=== PATIENT | male | born 1990 | race Caucasian/White ===

== ENCOUNTER 2017-08-24 22:55 | Emergency (ER) | payer SELFPAY ==
[2017-08-24] MEDS ORDERED: AMOXICILLIN 500MG CAPSULE PO ONE (23:25)
[2017-08-24] MEDS ORDERED: PREDNISONE 20 MG TAB PO ONE (23:25)
[2017-08-24] MEDS ORDERED: IPRATROPIUM/ALBUTEROL (0.5MG/3MG) NEB INH ONE (23:25)
--- NOTE | 2017-08-24 23:31 | Emergency Department Record ---
History of Present Illness - General Chief Complaint: Shortness of breath Stated Complaint: CARMELO,COUGH, VOMITING,TOOTHACHE Time Seen by Provider: 08/24/17 23:17 Source: Patient Mode of Arrival: Ambulatory Limitations: No limitations - History of Present Illness Initial Comments: 27 yo male presents with cough for 2 days. He has had clear phlegm production. He has had sore throat and subjective fevers. He has had left sided dental pain and now mild swelling of the left cheek. He has a hoarse voice. He is a smoker and had asthma as a child. No diarrhea. No rash. The phlegm makes him vomit at times. No edema. No chest pain. MD Complaint: Cough Onset/Timin -: Days(s) Severity scale (1-10): 8 Quality: Aching Consistency: Constant Improves With: Nothing Worsens With: Nothing Known History Of: Asthma Associated Symptoms: Cough, Other (dental pain) Treatments Prior to Arrival: Asprin - Related Data Previous Rx's Medication Instructions Recorded Amoxicillin 500Mg Capsule [Amoxil] 500 mg PO TID #30 tab 08/24/17 Prednisone [Prednisone 20Mg] 20 mg PO BID #10 tab 08/24/17 Allergies Allergy/AdvReac Type Severity Reaction Status Date / Time No Known Drug Allergies Allergy Verified 08/24/17 23:01 Travel Screening - Travel/Exposure Within Last 30 Days Have you traveled within the last 30 days?: No - Travel/Exposure Within Last Year Have you traveled outside the [place] in the last year?: No - Additonal Travel Details Have you been exposed to anyone with a communicable illness?: No - Travel Symptoms Symptom Screening: None Review of Systems Constitutional: Reports: Chills, Fever. Denies: Malaise, Weakness Eyes: Denies: Eye discharge, Eye pain, Photophobia, Vision change ENT: Reports: As per HPI, Congestion, Dental pain, Throat pain. Denies: Ear pain Respiratory: Reports: As per HPI, Cough Cardiovascular: Denies: Chest pain, Palpitations, Syncope Endocrine: Denies: Fatigue Gastrointestinal: Denies: Abdominal pain, Diarrhea, Nausea, Vomiting Genitourinary: Denies: Dysuria, Frequency, Hematuria Musculoskeletal: Reports: Myalgia. Denies: Arthralgia, Back pain, Joint swelling Skin: Denies: Bruising, Change in color, Rash Neurological: Reports: Headache. Denies: Abnormal gait, Confusion, Numbness, Seizure, Tingling, Tremors, Vertigo, Weakness Psychiatric: Denies: Anxiety Hematological/Lymphatic: Reports: Swollen glands. Denies: Anemia, Blood Clots, Easy bleeding, Easy bruising Past Medical History - SOCIAL HISTORY Smoking Status: Current every day smoker Alcohol Use: Heavy Drug Use: Occasional Drug Use Detail:: Marijuana - RESPIRATORY Hx Respiratory Disorders: No - CARDIOVASCULAR Hx Cardio Disorders: No - NEURO Hx Neuro Disorders: No - GI Hx GI Disorders: No - Hx Genitourinary Disorders: No - ENDOCRINE Hx Endocrine Disorders: No - MUSCULOSKELETAL Hx Musculoskeletal Disorders: No - PSYCH Hx Psych Problems: No - HEMATOLOGY/ONCOLOGY Hx Hematology/Oncology Disorders: No Family Medical History Any Significant Family History?: No Physical Exam - General General Appearance: Alert, Oriented x3, Cooperative, No acute distress Limitations: No limitations - Head Head exam: Atraumatic, Normocephalic, Normal inspection - Eye Eye exam: Normal appearance, PERRL, EOMI. negative: Conjunctival injection, Periorbital swelling, Scleral icterus - ENT ENT exam: Normal exam, Mucous membranes moist, TM's normal bilaterally. negative: Mucous membranes dry Ear exam: Normal external inspection Nasal Exam: Discharge. negative: Active bleeding, Dried blood, Sinus tenderness Mouth exam: Normal external inspection, Other (Mildly hoarse). negative: Drooling, Laceration, Muffled voice, Tongue elevation, Tongue normal, Trismus Teeth exam: Dental caries, Dental tenderness # (16) Throat exam: Normal inspection. negative: Tonsillar erythema, Tonsillomegaly, Tonsillar exudate, R peritonsillar mass, L peritonsillar mass - Neck Neck exam: Normal inspection, Full ROM, Lymphadenopathy (mild anterior cervical) . negative: Meningismus, Tenderness, Thyromegaly - Respiratory Respiratory exam: Decreased breath sounds, Rhonchi, Wheezes. negative: Normal lung sounds bilaterally, Accessory muscle use, Prolonged expiratory, Rales, Respiratory distress, Stridor - Cardiovascular Cardiovascular Exam: Regular rate, Normal rhythm, Normal heart sounds Peripheral Pulses: 2+: Radial (R), Radial (L) - GI/Abdominal GI/Abdominal exam: Soft. negative: Tenderness - Rectal Rectal exam: Deferred - exam: Deferred - Extremities Extremities exam: Normal inspection. negative: Calf tenderness, Pedal edema, Tenderness - Back Back exam: Reports: Normal inspection, Full ROM. Denies: Muscle spasm, Rash noted, Tenderness - Neurological Neurological exam: Alert, Normal gait, Oriented X3 - Psychiatric Psychiatric exam: Normal affect, Normal mood. negative: Agitated, Anxious - Skin Skin exam: Dry, Intact, Normal color, Warm Course Vital Signs 08/24/17 23:00 Temperature 98.3 F Pulse Rate 66 Respiratory 20 Rate Blood Pressure 143/95 Pulse Ox 97 - Reevaluation(s) Reevaluation #1: Duoneb ordered for diffuse wheezing CXR and Influenza ordered Amoxicillin provided for likely #16 dental infection 08/24/17 23:30 08/24/17 23:33 Non labored Vital reviewed. No tachycardia, hypoxia or fever. 08/24/17 23:46 Influenza is negative 08/25/17 00:20 The CXR was reviewed. No acute infiltrate on the preliminary read. 08/25/17 00:21 No hypoxia in the ED He will be DC with an inhaler, prednisone, amoxicillin for his cough, wheezing, and dental pain Disposition Disposition: Discharge Clinical Impression: Dental infection Disposition: Home, Self-Care Condition: (1) Good Instructions: Dental Abscess (ED), Acute Bronchitis (ED), Wheezing (ED) Additional Instructions: Return in the next 2-3 days if not improving Return sooner if worse, short of breath or any new concerns Take the Amoxicillin as directed Call for a follow up dental examination of the tender tooth Take the Prednisone as directed for the next 5 days for the lungs Use the inhaler as directed every 4-6 hours 2 puffs. Prescriptions: Amoxicillin 500Mg Capsule [Amoxil] 500 mg PO TID #30 tab Prednisone [Prednisone 20Mg] 20 mg PO BID #10 tab Forms: Patient Portal Access Time of Disposition: 00:21 Quality - Quality Measures Quality Measures: N/A - Blood Pressure Screening Does Patient Have Any of the Following: No Blood Pressure Classification: Hypertensive Reading Systolic Measurement: 143 Diastolic Measurement: 95 Screening for High Blood Pressure: < Pre-Hypertensive BP, F/U Documented > [ G8950] Pre-Hypertensive Follow-up Interventions: Referral to alternative/primary care provider.
[2017-08-24 23:42] LABS: INFLUENZA A NEGATIVE (NEGATIVE); INFLUENZA B NEGATIVE (NEGATIVE)
[2017-08-24] MEDS ORDERED: ALBUTEROL SULFATE (0.083%) 2.5 MG/3 ML NEB INH ONE (23:46)
[2017-08-25] MEDS ORDERED: ALBUTEROL HFA 8 GM INHALER INH ONE (00:15)
--- NOTE | 2017-08-26 07:29 | RADIOLOGY REPORT ---
EXAM: CHEST, TWO VIEWS HISTORY: CHEST PAIN. TECHNIQUE: Frontal and lateral views of the chest were obtained. Comparison: None. FINDINGS: The heart size is normal. Azygos fissure incidentally noted. The lungs are clear. No pneumothorax. IMPRESSION: NO ACUTE CARDIOPULMONARY PROCESS. JOB NUMBER: [id number] MTDD
== END 2017-08-25 00:44 | disposition home or self-care (01) ==
LOC: ER 22:55
DX: K04.7 Periapical abscess without sinus (principal); R05 Cough; R06.02 Shortness of breath; J02.9 Acute pharyngitis, unspecified; R06.2 Wheezing; F17.210 Nicotine dependence, cigarettes, uncomplicated
CPT/HCPCS: 99283 ×2; 87400; 71046; 94640 ×2; 94664; J7512; J7613

== ENCOUNTER 2017-12-07 20:04 | Emergency (ER) | payer BC ==
[2017-12-07] MEDS ORDERED: HYDROCODONE/APAP 5/325MG TABLET PO ONE (20:30)
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
--- NOTE | 2017-12-10 08:29 | RADIOLOGY REPORT ---
EXAM: RIGHT SHOULDER HISTORY: PAIN. TECHNIQUE: Three views of the right shoulder were performed. FINDINGS: No evidence of fracture or dislocation. No lytic or blastic lesion. IMPRESSION: NEGATIVE RIGHT SHOULDER EXAMINATION. JOB NUMBER: [id number] [facility]
== END 2017-12-07 21:41 | disposition home or self-care (01) ==
LOC: ER 20:04
DX: S46.001A Unspecified injury of muscle(s) and tendon(s) of the rotator cuff of right shoulder, initial encounter (principal); F17.210 Nicotine dependence, cigarettes, uncomplicated; V86.56XA Driver of dirt bike or motor/cross bike injured in nontraffic accident, initial encounter
CPT/HCPCS: 99283